=== PATIENT | male | born 1935 | race Caucasian/White ===

== ENCOUNTER → 2020-07-02 15:39 | Outpatient (CLI) | payer MEDICARE, SELFPAY ==
--- NOTE | ~2020-07-02 | XR_ITS ---
XR finger 2nd LT min 2V DATE: 07/02/2020 16:03 INDICATION: Injury TECHNIQUE: 4 views COMPARISON: 08/06/2018 left hand FINDINGS: There is soft tissue swelling of the second digit, most prominent in proximal and midportio n of the digits. There is severe osteoarthritic change at the second metacarpophalangeal joints and the proximal and d istal interphalangeal joints erosive change at the proximal interphalangeal joint. There is osteoarthritis at the first carpometacarpal and first metacarpophalangeal joint and the inte rphalangeal joints of the second digit. No fracture or dislocation or periosteal reaction. IMPRESSION: Polyarticular osteoarthritis Differential diagnosis at the proximal interphalangeal joint of the second digit includes erosive ost eoarthritis versus infection Reviewed, dictated and finalized at location A. IMPRESSION: Polyarticular osteoarthritis Differential diagnosis at the proximal interphalangeal joint of the second digi t includes erosive osteoarthritis versus infection
== END ==
PROVIDERS: Visit Provider Nurse Practitioner Family
DX: M19.042 Primary osteoarthritis, left hand (principal)
CPT/HCPCS: 73140

== ENCOUNTER 2020-12-29 18:14 | Emergency (ER) | payer MEDICARE, SELFPAY ==
[2020-12-29 18:30] VITALS: BP 127/75; PULSE 75; RESP 15; TEMP 36.2; O2SAT 100
--- NOTE | 2020-12-29 18:36 | ED.WOUNDLAC ---
HPI - Wound/Laceration General Chief Complaint: Wound/Laceration Stated Complaint: Cut Lt Forearm Source: patient and RN notes reviewed Limitations: no limitations History of Present Illness HPI narrative: The right-handed patient-- on [employer] for AODM, for Afib on Eliquis and has tetanus allergy--, presents with skin avulsion. Patient states about 4 hours ago he scraped his left forearm while moving a piece of furniture. He complains of mild pain and bleeding from proximal-based flap avulsion, thats better with compression or elevation. No numbness, foreign body, weakness; he declines tetanus update. Related Data Home Medications Medication Instructions Recorded Confirmed apixaban 2.5 mg tablet 2.5 mg PO BID 01/24/19 07/05/20 aspirin 81 mg tablet,delayed 81 mg PO DAILY 01/24/19 07/05/20 release ezetimibe 10 mg tablet 10 mg PO DAILY 01/24/19 07/05/20 glucosamine HCl 500 mg tablet 500 mg PO DAILY tablet 01/24/19 07/05/20 lisinopril 5 mg tablet 5 mg PO DAILY 01/24/19 07/05/20 metoprolol succinate 25 mg 25 mg PO DAILY 01/24/19 07/05/20 tablet,extended release 24 hr omeprazole 20 mg capsule,delayed 20 mg PO DAILY 01/24/19 07/05/20 release torsemide 20 mg tablet 10 mg PO DAILY tablet 01/24/19 07/05/20 tamsulosin 0.4 mg PO DAILY 12/30/20 12/30/20 Allergies Allergy/AdvReac Type Severity Reaction Status Date / Time diphtheria,pertussis Allergy Severe Seizure Verified 12/30/20 11:01 (acellular),te Tetanus Vaccines and Toxoid Allergy Severe seizures Verified 12/30/20 11:01 quinine Allergy Mild Nausea and Verified 12/30/20 11:01 Vomiting Review of Systems Review of Systems: General/Constitutional: No weight loss,fever Eyes: N0: Redness,discharge Ears/Nose/Throat: No: Epistaxis,ear discharge Respiratory: Denies: Hemoptysis Gastrointestinal: No Vomiting, Bleeding-rectal Skin: No Lumps, eruption Neurologic: No Focal Weakness,Sz Hematologic: Denies: Petechiae/Purpura Psychiatric: No: Suicida ideationl All Other Systems: Reviewed and Negative [facility] Past Medical History Medical History Decreased libido Strength loss of Uncontrolled type 2 diabetes mellitus with complication, without long-term current use of insulin Family History Family History Sibling Patient's brother is in good health Family history of malignant neoplasm Social History Social History Alcohol intake: never Gender identity (if verbalized by the patient): Male Comments At time of signature, agree with nursing past medical, surgical, social and family history. There is no relevant family history pertinent to the presenting complaint Exam Narrative: General Appearance: Well appearing, No distress EYE: PERRLA, Conjunctiva clear Ears: External ear normal Nose: Normal nose Mouth/Throat: Normal appearing, Normal lips,: Supple Respiratory: Airway patent, No respiratory distress Abdomen: Soft, Non-tender, No massess, Musculoskeletal: Full ROM Skin-forearm: Warm, Dry; smaller 4x4 cm triangular, proximal based flap avulsion Neurological: A&O x3, CN II-X intact Psychiatric: Normal mood, Normal affect Course Vital Signs Vital signs: Vital Signs Temperature 97.2 F L 12/29/20 18:30 Pulse Rate 75 12/29/20 18:30 Respiratory Rate 15 12/29/20 18:30 Blood Pressure 127/75 12/29/20 18:30 Pulse Oximetry 100 12/29/20 18:30 Temperature 97.2 F L 12/29/20 18:30 Pulse Rate 75 12/29/20 18:30 Respiratory Rate 15 12/29/20 18:30 Blood Pressure 127/75 12/29/20 18:30 Pulse Oximetry 100 12/29/20 18:30 Discharge Plan Discharge Clinical Impression: Encounter for post-traumatic wound check Avulsion of skin of forearm Qualifiers: Encounter type: initial encounter Laterality: left Qualified Code(s): S51.802A - Unspecified open wound of l
== END 2020-12-29 19:07 | disposition home or self-care (01) ==
PROVIDERS: Emergency Provider Emergency Medicine; PCP Family Medicine
DX: S51.802A Unspecified open wound of left forearm, initial encounter (principal); W45.8XXA Other foreign body or object entering through skin, initial encounter; Z79.4 Long term (current) use of insulin; Z79.82 Long term (current) use of aspirin
CPT/HCPCS: 99213; G0463

== ENCOUNTER → 2021-12-19 11:52 | Outpatient (CLI) | payer MEDICARE, SELFPAY ==
--- NOTE | ~2021-12-19 | XR_ITS ---
XR chest 2V 12/19/2021 12:12 Indication: Cough Procedure: 2 view chest Comparison: 02/18/2016 Findings: Status post median sternotomy for CABG. Cardiomegaly. No focal air space disease, pulmonary edema, pleural effusion or suspected pneumothorax. Pacemaker leads are stable. Impression: 1: No acute cardiopulmonary disease. Reviewed, dictated and finalized at location B. Impression: 1: No acute cardiopulmonary disease.
== END ==
PROVIDERS: PCP Internal Medicine Cardiovascular Disease; Visit Provider Internal Medicine Cardiovascular Disease
DX: R05.9 Cough, unspecified (principal)
CPT/HCPCS: 71046

== ENCOUNTER 2022-05-29 08:57 | Outpatient (CLI) | payer MEDICARE, SELFPAY ==
--- NOTE | 2022-05-29 11:30 | NEURO_ITS ---
Impression: # Known diabetic complains of tingling in lower extremities. # Neuropathy left more than right, sensory more than motor of axonal type. # Needle/EMG exam reveals neurogenic changes. Motor Nerve Conduction Lower Extremities Peroneal Nerve Conduction Velocity (m/sec) Terminal Latency (msec) Response Voltage(mV) Popliteal space-Ankle Ankle Extensor Dig Brevis Popliteal space Ankle Right 37 4.5 .5 .6 Left NR NR NR NR Tibial Nerve Conduction Velocity (m/sec) Terminal Latency (msec) Response Voltage(mV) Popliteal space-Ankle Ankle-Extensor Dig Brevis Popliteal space Ankle Right 35 5.9 .2 .1 Left NR NR NR NR F-waves Peroneal Nerve (ms) Tibial Nerve (ms) Right NR NR Left NR NR Sensory Nerve Conduction Lower Extremities Sural Nerve Stimulation Terminal Latency (msec) Ankle Response Voltage (uV) Ankle Response Velocity (m/sec) Right NR NR NR Left NR NR NR Superficial Peroneal Nerve Stimulation Terminal Latency (msec) Ankle Response Voltage (uV) Ankle Response Velocity (m/sec) Right NR NR NR Left NR NR NR Left Right Muscles Examined Fibrillation Fasciculation Scarcity Voltage Duration Left Right Left Right Left Right Left Right Left Right X X Ant Tibialis Reduced Reduced >12ms >12ms X X Gastroc Reduced Reduced >12ms >12ms X X Fibularis Long Reduced Reduced >12ms >12ms X X Flex Dig Long X X Ext Dig Brev Reduced Reduced >12ms >12ms Abd Hallucis X X Quadriceps Reduced Reduced >12ms >12ms Paraspinals MTDD
== END 2022-05-29 08:58 | disposition home or self-care (01) ==
LOC: ANHNEURO 08:58
PROVIDERS: PCP Family Medicine; Visit Provider Family Medicine
DX: G62.9 Polyneuropathy, unspecified (principal)
CPT/HCPCS: 95886; 95910

== ENCOUNTER 2022-11-12 17:07 | Observation (INO) | payer MEDICARE, SELFPAY ==
[2022-11-12] VITALS (9 sets, daily range): BP systolic 147–171; BP diastolic 74–93; PULSE 59–86; RESP 14–20; TEMP 35.9–36.7; O2SAT 98–100; BMI 27.6
--- NOTE | ~2022-11-12 | CT_ITS ---
EXAMINATION: CTA BRAIN/CAROTID DATE: 11/12/2022 18:00 INDICATION: Stroke with right upper extremity weakness, blurred vision and left-sided headache TECHNIQUE: Computed tomographic angiography (CTA) of the head and neck was performed with 100 mL Omni paque-350 intravenous contrast. Multiplanar reconstructions and maximum intensity projection 3D-recon structions of the carotid arteries and of the intracranial arteries were created by the technologist on a separate workstation. Precontrast CT of the head was also obtained. Automated exposure control and iterative reconstruction technique were employed.The dose-length product was 1184.99 mGy-cm. COMPARISON: Head CT dated 11/12/2022 FINDINGS: Carotid arteries: Visualized portion of the thoracic aorta is normal in caliber with no dissection. Postoperative mcekon e of prior median sternotomy and coronary artery bypass grafting. Enlargement of the central pulmonar y arteries consistent with pulmonary arterial hypertension. Atherosclerotic calcifications without he modynamically significant stenosis at the great vessels arising from the aortic arch. There is 40% st enosis of the right carotid bulb relative to normal distal artery lumen diameter (NASCET criteria). T here is 35% stenosis of the left carotid bulb relative to normal distal artery lumen diameter. Left v ertebral artery is mildly dominant. There is small amount of atherosclerotic plaque without mildly si gnificant stenosis at the origin of the bilateral vertebral arteries. Mild dependent atelectasis in t he visualized upper lungs likely related to expiratory phase of imaging. Mildly prominent right parat lizeth lymph node measuring up to 1.7 x 0.9 cm which is likely reactive. Moderate cervical spondylos is. Intracranial arteries Atherosclerotic calcific a cyst without hemodynamically significant stenosis at the bilateral carotid siphons. There is no hemodynamically significant stenosis in the vertebral, basilar and internal car otid arteries. Vertebral arteries are codominant. There are no aneurysms identified. Both A1 and P1 segments are patent. Cerebral arterial arborization appears symmetric. No abnormally enhancing brain lesions identified. IMPRESSION: 1. 40% stenosis of the right carotid bulb relative to normal distal artery lumen diameter (NASCET cri teria). 2. 35% stenosis of the left carotid bulb relative to normal distal artery lumen diameter. 3. Nonhemodynamically significant atherosclerotic plaque at the bilateral carotid siphons. Otherwise unremarkable cerebral CT angiogram. Reviewed, dictated and finalized at location A. IMPRESSION: 1. 40% stenosis of the right carotid bulb relative to normal distal artery lume n diameter (NASCET criteria). 2. 35% stenosis of the left carotid bulb relative to normal distal artery lumen diameter. 3. Nonhemodynamically significant atherosclerotic plaque at the bilateral carot id siphons. Otherwise unremarkable cerebral CT angiogram.
--- NOTE | ~2022-11-12 | XR_ITS ---
EXAMINATION: XR chest 1V portable DATE: 11/12/2022 17:46 INDICATION: Stroke with right upper extremity weakness TECHNIQUE: frontal view of the chest was obtained. COMPARISON: Chest radiograph dated 12/19/2021 FINDINGS: The lungs remain clear with no focal airspace opacities, pulmonary edema, pleural effusion or pneumot horax. Cardiomegaly. Median sternotomy wires, ostial markers and mediastinal surgical clips consisten t with prior coronary artery bypass grafting. Dual lead pacemaker seen with leads projecting over the expected locations of the right atrium and right ventricle. IMPRESSION: 1. No acute cardiopulmonary disease. Reviewed, dictated and finalized at location A.
--- NOTE | ~2022-11-12 | CT_ITS ---
EXAMINATION: CT brain wo con DATE: 11/12/2022 17:24 INDICATION: Right upper extremity weakness, headache and dizziness. TECHNIQUE: Computed tomography (CT) of the head was performed without intravenous contrast. Sagittal and coronal reconstructions were performed. The mA was adjusted according to patient size. Iterative reconstruction technique was employed. The dose-length product was 605.33 mGy-cm. COMPARISON: head CT dated 08/07/05 FINDINGS: Unchanged small focus of encephalomalacia in the right frontal lobe consistent with chronic infarct. No acute intracranial hemorrhage, acute infarction or abnormal extra axial fluid collection. There is mild scattered white matter hypoattenuation consistent with chronic small vessel ischemic disease. S ymmetric prominence of the sulci consistent with mild to moderate age-appropriate diffuse cerebral vo lume loss. Ventricles are normal and symmetric. No mass/mass effect. Mild mucosal thickening the bila teral ethmoid sinuses. The orbits and mastoid air cells are normal. IMPRESSION: 1. 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 No acute intracranial process. 2. Age-related changes including mild to moderate diffuse volume loss and mild scattered white matter hypoattenuation consistent with chronic small vessel ischemic disease. Reviewed, dictated and finalized at location A. IMPRESSION: 1. 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 No acute intracranial process. 2. Age-related changes including mild to moderate diffuse volume loss and mild scattered white matter hypoattenuation consistent with chronic small vessel isc hemic disease.
[2022-11-12 17:29] LABS: Glucose Point of Care 119 mg/dl (65-105)
[2022-11-12 17:37] LABS: Basophils Percent Auto 0.4 % (0.2-1.2); Eosinophils Absolute Auto 0.3 K/mm3 (0-0.3); Eosinophils Percent Auto 3.2 % (0-4.4); Hematocrit 44.4 % (42.0-52.0); Hemoglobin 14.7 g/dL (14.0-18.0); Immature Granulocyte Absolute 0.04 K/mm3 (0.00-0.031); Immature Granulocyte Percent A 0.4 % (0-0.5); Lymphocytes Absolute Auto 1.83 K/mm3 (0.9-3.2); Lymphocytes Percent Auto 19.6 % (18.3-44.2); Mean Corpuscular HGB Conc 33.1 g/dl (32-36); Mean Corpuscular Hemoglobin 31.6 pg (26-34); Mean Corpuscular Volume 95.5 fl (80-100); Mean Platelet Volume 8.8 fl (7.4-10.4); Monocytes Absolute Auto 0.8 K/mm3 (0.1-0.6); Neutrophils Absolute Auto 6.4 K/mm3 (1.3-6.7); Neutrophils Percent Auto 68.4 % (45.5-73.1); Platelet Count Result 216 k/mm3 (150-375); Red Blood Count 4.65 M/mm3 (4.6-6.20); Red Cell Distribution Width 13.4 % (11.5-14.5); White Blood Count 9.3 K/mm3 (4.5-10.0)
[2022-11-12 17:46] LABS: Alanine Aminotransferase 19 U/L (6-50); Albumin Level 4.2 g/dL (3.5-5.1); Alkaline Phosphatase 64 U/L (38-126); Anion Gap 7 mmol/L (8-16); Aspartate Amino Transferase 20 U/L (17-59); Bilirubin,Total 0.7 mg/dL (0.2-1.3); Blood Urea Nitrogen 19 mg/dL (9-20); Calcium 8.7 mg/dL (8.4-10.2); Carbon Dioxide 28 mmol/L (22-30); Chloride 102 mmol/L (98-107); Estimated CRCL calculation 35 ml/min; Estimated Glomerular Filt Rate 44; Glucose 114 mg/dL (65-110); Sodium 137 mmol/L (137-145)
[2022-11-12 17:48] LABS: INR 1.1; Prothrombin Time 14.2 Seconds (11.1-14.7)
--- NOTE | 2022-11-12 17:48 | ECG_ITS ---
Measurements Intervals [place] Rate: 68 P: CT: 0 QRS: -58 QRSD: 170 T: 125 QT: 479 QTc: 510 Interpretive Statements ELECTRONIC VENTRICULAR PACEMAKER PREMATUER VENTRICULAR CONTRACTIONS ABNORMAL RHYTHM ECG NO PREVIOUS ECG AVAILABLE FOR COMPARISON Electronically Signed On 11-13-2022 10:57:36 CDT by Martin Hidalgo M.D.
--- NOTE | 2022-11-12 17:56 | ED.NEUROSD ---
HPI - Neuro Symptoms/Deficit General Chief Complaint: Neuro Symptoms/Deficit Stated Complaint: I think I had a mini stroke Time Seen by Provider: 11/12/22 17:17 History of Present Illness HPI Narrative: Patient is an 87-year-old male who presents ER with strokelike symptoms. At 2 PM while taking a shower he began having weakness in the right arm where he could not move it. He had mild weakness in the right leg, and he had slurred speech. Symptoms resolved upon presentation to the ER. Reports he has history of A-fib and is currently on a blood thinner (apixaban). No chest pain or chest pressure. No racing of the heart. Patient reports he has had a mild left-sided headache for the last week with throbbing behind the right eye. No change in vision or hearing. Denies any trauma. Related Data Home Medications Medication Instructions Recorded Confirmed apixaban 2.5 mg tablet (Eliquis) 2.5 mg PO BID 01/24/19 11/12/22 ezetimibe 10 mg tablet 10 mg PO DAILY 01/24/19 11/12/22 glucosamine HCl 500 mg tablet 500 mg PO BID 01/24/19 11/12/22 metoprolol succinate 25 mg 25 mg PO DAILY 01/24/19 11/12/22 tablet,extended release 24 hr omeprazole 20 mg capsule,delayed 20 mg PO DAILY 01/24/19 11/12/22 release torsemide 20 mg tablet 10 mg PO DAILY 01/24/19 11/12/22 potassium chloride 10 mEq 10 meq PO DAILY 09/29/22 11/12/22 capsule,extended release Allergies Allergy/AdvReac Type Severity Reaction Status Date / Time diphtheria,pertussis Allergy Severe Seizure Verified 11/12/22 17:34 (acellular),te Tetanus Vaccines and Toxoid Allergy Severe seizures Verified 11/12/22 17:34 quinine Allergy Mild Nausea and Verified 11/12/22 17:34 Vomiting Review of Systems Review of Systems: All systems reviewed & are unremarkable except as noted in HPI and below Constitutional: Constitutional: Denies chills, Denies fatigue and Denies fever(s) Eyes: Eyes: Denies change in vision and Denies photophobia ENT: Denies nasal congestion and Denies sore throat Cardiovascular: Cardiovascular: Denies chest pain, Denies rapid heart rate and Denies radiating jaw, neck or arm pain Respiratory: Respiratory: Denies cough, Denies dyspnea and Denies wheezing Gastrointestinal: Gastrointestinal: Denies abdominal pain, Denies nausea and Denies vomiting Neurologic: Denies syncope, Reports headache(s), Reports focal weakness and Denies numbness PMFSH Past Medical History Medical History (Updated 11/12/22 @ 18:44 by Diego Sauceda MD) BMI 27.0-27.9,adult Bowel obstruction Coronary artery disease Decreased libido Diabetes type 2, controlled Essential hypertension Insomnia Neuropathy Paroxysmal atrial fibrillation Strength loss of Uncontrolled type 2 diabetes mellitus with complication, without long-term current use of insulin Surgical History Surgical History (Updated 11/12/22 @ 17:58 by Diego Sauceda MD) No pertinent past surgical history Family History Family History Sibling Patient's brother is in good health Family history of malignant neoplasm Father No problems noted. Mother , 97 No problems noted. Sibling No problems noted. 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 HEAD: Normocephalic, atraumatic. EYES: PERRL and EOMI. ENT: Mucous membranes moist. CHEST: Clear to auscultation. No respiratory distress. HEART: R irregular regular rate and rhyt
[2022-11-12 17:58] LABS: Troponin I < 0.012 ng/mL (0.000-0.034)
--- NOTE | 2022-11-12 20:19 | PC.NURSE ---
Pt reported to this RN that his gave him his at home night time medications.
--- NOTE | 2022-11-12 20:48 | ADMGEN ---
This patient, Olegario Chambers, was admitted to 2 Medical Room 255-. Patient/family oriented to hospital policies and general routines including ID bracelet, bed and alarms, visiting hours, pain management, procedures, bathroom and other care routines, personal items, smoking policy, room service/diet, and visiting hours. Information on how to activate the Rapid Response Team has been discussed. Patient/Family are encouraged to report perceived risks to care and to ask questions if they do not understand what they are told or what they should do.
[2022-11-13] VITALS (7 sets, daily range): BP systolic 113–133; BP diastolic 45–65; PULSE 59–70; RESP 16–21; TEMP 36.1–36.4; O2SAT 100
--- NOTE | 2022-11-13 | ECHO_ITS ---
Patient Info Name: Olegario Chambers Age: 87 years : 1935 Gender: Male Ht: 72 in Wt: 203 lbs BSA: 2.18 m2 HR: 60 bpm BP: 113 / 45 mmHg Heart Rhythm: Paced Technical Quality: Fair Exam Date: 11/13/2022 3:44 PM Exam Location: [facility] Pulmonary Patient Status: Inpatient Admit Date: 11/12/2022 Staff Ordering Physician: Rubén Lehman Plant Control Operator: Romelia Lund RDCS Attending Provider: Raffy Reed MD Referring Physician: Dominik STEWART; Exam Type: CA echo dop bubble study w con Study Info Indications - r/o tia Complete two-dimentional, color flow and Doppler transthoracic echocardiogram is performed with agitated saline and with contrast to opacify the left ventricle and to improve the delineation of the left ventricle endocardial borders. Contrast/Agitated Saline Contrast/Ag. Saline: Agitated Saline Amount: 20.00 ml Administered By: Romelia Lund RDCS Existing IV Access: Yes IV Access Condition: patent with no signs of infiltration Contrast/Ag. Saline: Definity Amount: 3.00 ml Administered By: Romelia Lund RDCS Existing IV Access: Yes IV Access Condition: patent with no signs of infiltration Summary 1. Left ventricular hypertrophy with good systolic contractility. 2. Definity contrast injected to improve visualization. 3. Mildly sclerotic aortic valve with mild aortic regurgitation. 4. Significantly dilated left atrium. 5. Modest MR. 6. Pacemaker lead noted. 7. Cardiac rhythm appears to be ventricularly paced with some intrinsic rhythm, atrial rhythm probably AFib. 8. Saline contrast injection shows no evidence of intracardiac shunt. Left Ventricle Left ventricular chamber dimension is normal. Left ventricular systolic function is normal, estimated at 60-65%. There is mild concentric increased left ventricular wall thickness. Right Ventricle Right ventricular chamber dimension is normal. Linear artifact in right ventricle suggestive of catheter(s), pacemaker lead(s), or ICD lead(s). Left Atria Left atrial chamber dimension is severely enlarged. Right Atria Right atrial chamber dimension is normal. Atrial Septum Intact interatrial septum visualized by agitated saline imaging. Aortic Valve The aortic valve is trileaflet. There is mild aortic valve sclerosis. There is trace aortic valve regurgitation. Pulmonic Valve The pulmonic valve is not well visualized. Mitral Valve The mitral valve has normal leaflets. There is mild mitral valve regurgitation. Tricuspid Valve The tricuspid valve leaflets are normal. Pericardium/Pleural The pericardium appears normal. Aorta The aortic root size at the sinus of Valsalva is normal. Left Ventricular Outflow Tract Name Value Normal LVOT 2D LVOT Diameter 2.0 cm LVOT Doppler LVOT Peak Gradient 2 mmHg LVOT Mean Gradient 1 mmHg LVOT VTI 13 cm LVOT VTI/AV VTI Ratio 0.6 LVOT Stroke Volume 41 ml LVOT CO 2.5 l/min
--- NOTE | 2022-11-13 01:21 | PM.IMHP ---
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 He is also diabetic with diabetic complains of tingling in his lower extremities. The patient has neuropathy to lower extremities. The patient came to the emergency room tonight with stroke-like symptoms. The patient stated that while he was taking a shower he began having weakness to his right arm which could not move. His some mild weakness to his right leg. He also stated that he had slurred speech. The patient came to the emergency room but now his symptoms have resolved. He does have a history of AFib and is on apixaban. Patient denies any chest pain or palpitation. He has no fever chills. No nausea vomiting or diarrhea. The patient reports that he has a mild left-sided headache for the last week and a throbbing headache behind his right eye. Creatinine is 1.5 which is at his baseline. GFR 44 and is currently at the baseline is well. Blood sugars 114 and 119. Troponin negative. Head and neck CTA1. 40% stenosis of the right carotid bulb relative to normal distal artery lumen diameter (NASCET criteria). 2. 35% stenosis of the left carotid bulb relative to normal distal artery lumen diameter. 3. Nonhemodynamically significant atherosclerotic plaque at the bilateral carotid siphons. Otherwise unremarkable cerebral CT angiogram. Chest x-ray shows no acute cardiopulmonary disease. Head CT read as followingmall old infarct in the right frontal lobe. No acute intracranial process. 2. Age-related changes including mild to moderate diffuse volume loss and mild scattered white matter hypoattenuation consistent with chronic small vessel ischemic disease. Neurology has been consulted. The patient was given Zofran, [place], Tylenol, and morphine,. The patient is being admitted to observation status on the date of service of 11/12/2022 Review of Systems Review of Systems: All systems reviewed & are unremarkable except as noted in HPI and below Constitutional: Constitutional: Reports as per HPI and Reports no additional constitutional complaints Eyes: Eyes: Reports as per HPI and Reports no additional eye complaints ENT: Reports system reviewed and no additional complaints, except as documented and Reports Normal hearing present Cardiovascular: Cardiovascular: Reports no additional cardiovascular complaints Respiratory: Respiratory: Reports no additional respiratory complaints and Reports no additional respiratory complaints Gastrointestinal: Gastrointestinal: Reports as per HPI and Reports no additional gastrointestinal complaints Musculoskeletal: Musculoskeletal: Reports no additional musculoskeletal complaints Integumentary/Breasts: Skin/Breast: Reports system reviewed and no additional complaints, except as docu and Reports as per HPI Neurologic: Reports system reviewed and no additional complaints, except as documented, Reports as per HPI and Reports Normal hearing present Psychiatric: Psychiatric: Reports no additional psychiatric complaints and Reports as per HPI Endocrine: Endocrine: Reports no additional endocrine complaints Hematologic/Lymphatic: Hematologic/Lymphatic: Reports no additional hematologic/lymphatic complaints Allergic/Immunologic: Allergic/Immunologic: Reports no additional allergic/immunologic complaints [facility] Past Medical History Medical History (Updated 11/13/22 @ 01:42 by Zuleyka Harris NP) BMI 27.0-27.9,adult Bowel obstruction BPH (benign prostatic hyperplasia) Coronary artery disease Decreased libido Diabetes type 2, controlled Essential hypertension Insomnia Neuropathy Pacemaker Paroxysmal atrial fibrillation Strength loss of Two-vessel coronary artery disease Uncontrolled type 2 diabetes mellitus with complication, without long-term current use of insuli
--- NOTE | 2022-11-13 09:45 | PM.DS ---
DS: Admitting Diagnosis Discharge Date 11/13/2245 Admitting Diagnosis TIA DS: Discharge Diagnosis Discharge Diagnosis (1) Brain TIA: Code(s): G45.9 - Transient cerebral ischemic attack, unspecified Status: Acute Assessment and Plan: The patient is already on apixaban. The patient has had an echo in the passing we are awaiting records on his echo. CT the brain as follows Head CT 11/12/22 17:25 IMPRESSION: 1. 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 No acute intracranial process. 2. Age-related changes including mild to moderate diffuse volume loss and mild scattered white matter hypoattenuation consistent with chronic small vessel ischemic disease. Head/Neck CTA 11/12/22 18:02 IMPRESSION: 1. 40% stenosis of the right carotid bulb relative to normal distal artery lumen diameter (NASCET criteria). 2. 35% stenosis of the left carotid bulb relative to normal distal artery lumen diameter. 3. Nonhemodynamically significant atherosclerotic plaque at the bilateral carotid siphons. Otherwise unremarkable cerebral CT angiogram. Neurology has been consulted. MRI unable to be obtained related to pacemaker Echo will be ordered to rule out clots per neuro, will get bubble Lipid panel and A1c ordered Symptoms resolved Add aspirin (2) Neuropathy: Code(s): G62.9 - Polyneuropathy, unspecified Status: Acute Assessment and Plan: Chronic Continue supportive therapy (3) Paroxysmal atrial fibrillation: Code(s): I48.0 - Paroxysmal atrial fibrillation Status: Acute Assessment and Plan: Continue with apixaban and metoprolol EKG shows paced rhythm HR stable and controlled (4) Essential hypertension: Code(s): I10 - Essential (primary) hypertension Status: Acute Assessment and Plan: BP 113/45 Continue with metoprolol and torsemide Trend BP adjust therapy as indicated (5) BPH (benign prostatic hyperplasia): Code(s): N40.0 - Benign prostatic hyperplasia without lower urinary tract symptoms Status: Acute Assessment and Plan: Continue with Flomax. Trend urine output DS: Summary Hospital Course Hospital Course: patient is a 7-year-old male with a past medical history of AFib with pacemaker, diabetes type 2, hypertension, CAD, post CABG presented the ED with complaints of right-sided numbness and tingling of the upper extremity. CT of the brain was performed and showed an old infarct to the right frontal lobe CTA was performed showed 40% stenosis the right carotid bulb, 35% of the left carotid bulb. Lipid panel was performed and did show LDL of 97. Patient was started on atorvastatin. Cardiology was consulted and started patient on an 81 mg aspirin. Echo was performed with bubble study showed___. MRI was ordered however cannot be performed due to pacemaker. Currently patient states that his symptoms have resolved. A1c was 6.1. Patient is denying any chest pain, shortness a breath, nausea, vomiting, diarrhea constipation. Neurology has been consulted and saw the patient as well. Currently patient is stable for discharge for labs and vital signs patient will follow-up with primary care and about a week. Status at Discharge Functional status at discharge: independent ambulation Overall status at discharge: patient is progressing back to baseline Time Spent with Patient Time attestation: Total time spent providing and/or coordinating discharge services: 43 minutes Time spent: Greater than 30 minutes Specific discharge activities: Diagnostic testing, chart review, developing a treatment plan, education, care coordination documentation, physical exam, result review Exam Narrative: General: well-nourished, well-appearing 87-year-old male, sitting up in bed, comfortable, NARD Neuro: awake, alert and oriented x4, speech clear, no focal neuro deficits noted HEENMT: normocephalic, atrau
--- NOTE | 2022-11-13 10:41 | PM.CNCAR ---
Assessment and Plan Assessment and plan (1) Brain TIA: Code(s): G45.9 - Transient cerebral ischemic attack, unspecified Status: Acute Assessment and Plan: Neurology has been consulted. Last echocardiogram from April 2022 shows normal LV size and function with LVEF 65%, severe LVH, mild-moderate MR, moderate TR. Given this TIA episode, I recommend patient take ASA 81mg once daily in addition to his Eliquis. (2) Atrial fibrillation: Code(s): I48.91 - Unspecified atrial fibrillation Status: Acute Assessment and Plan: His last device interrogation in October 2022 shows atrial fibrillation burden of >99% but no ventricular high rate episodes. Continue Eliquis 2.5mg BID (2.5mg dose based on age and renal function). Continue Metoprolol. Plan Patient really wants to go home today. From a cardiac standpoint, he is okay to go home. Follow up with me in clinic. Recommendations/plan discussed with Hospitalist. History of Present Illness History of Present Illness Consult date/time: 11/13/22 10:41 Requesting physician: Diego Sauceda MD Consult reason: Other (TIA, need Echo records) Reason For Visit: tia Narrative: Reason for consult: TIA, need Echo records. This is an 87 year old pleasant gentleman who I see in the clinic. He has coronary artery disease s/p CABG, atrial fibrillation, sick sinus syndrome s/p dual chamber PPM who presented with right arm weakness that occurred yesterday afternoon while showering. He could not move his right arm. Had some mild right leg weakness and slurred speech. Symptoms lasted for about an hour and then resolved with no residual deficits. CT head shows old infarct, but no acute findings. Patient admitted for TIA workup. Patient states he is feeling well this morning and wants to go home. His last device interrogation in October 2022 shows atrial fibrillation burden of >99% but no ventricular high rate episodes. Last echocardiogram from April 2022 shows normal LV size and function with LVEF 65%, severe LVH, mild-moderate MR, moderate TR. Patient reports full compliance with his Apixaban. Review of Systems Review of Systems: All systems reviewed & are unremarkable except as noted in HPI and below (HPI) [facility] Past Medical History Medical History BMI 27.0-27.9,adult Bowel obstruction BPH (benign prostatic hyperplasia) Coronary artery disease Decreased libido Diabetes type 2, controlled Essential hypertension Insomnia Neuropathy Pacemaker Paroxysmal atrial fibrillation Strength loss of Two-vessel coronary artery disease Uncontrolled type 2 diabetes mellitus with complication, without long-term current use of insulin Surgical History Surgical History H/O hernia repair History of cardiac catheterization Hx of cholecystectomy S/P total knee arthroplasty Bilaterally Family History Family History Sibling Patient's brother is in good health Family history of malignant neoplasm Father No problems noted. Mother , 97 No problems noted. Sibling No problems noted. Social History Social History Social History: The patient lives with his and has 3 children. He is retired. He is a former smoker. 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
--- NOTE | 2022-11-13 12:13 | WPDNEURCNPN ---
Assessment and Plan Assessment and plan (1) Atrial fibrillation: Code(s): I48.91 - Unspecified atrial fibrillation Status: Acute (2) Brain TIA: Code(s): G45.9 - Transient cerebral ischemic attack, unspecified Status: Acute (3) Coronary artery disease: Qualifiers: Coronary Disease-Associated Artery/Lesion type: [place] artery [place] vs. transplanted heart: [place] heart Associated angina: without angina Qualified Code(s): I25.10 - Atherosclerotic heart disease of [place] coronary artery without angina pectoris Code(s): I25.10 - Atherosclerotic heart disease of [place] coronary artery without angina pectoris Status: Acute (4) Diabetes type 2, controlled: Qualifiers: Diabetes mellitus terminal operations supervisor insulin use: without terminal operations supervisor use Diabetes mellitus complication status: without complication Qualified Code(s): E11.9 - Type 2 diabetes mellitus without complications Code(s): E11.9 - Type 2 diabetes mellitus without complications Status: Acute (5) Essential hypertension: Code(s): I10 - Essential (primary) hypertension Status: Acute Plan Mr. Chambers is an 87 year old male with a history of HTN, DM, HLD, atrial fibrillation s/p pacemaker presenting due to transient RUE weakness. Symptoms self-resolved. Neurological exam appears to be non-focal. MRI cannot be done at this facility due to the pacemaker. Suspect likely TIA. - Continue Eliquis BID - LDL goal <70; will need adjunct lipid lowering therapy - A1c, 6.1 -prediabetic range - Surface echocardiogram is pending - MRI brain should be done as outpatient at pacemaker compatible MRI - Outpatient Neurology follow-up Consult date: 11/13/22 Reason for consult: Concern for stroke HPI: Olegario Chambers is a 87 year old male with a history of diabetes, HTN, atrial fibrillation s/p pacemaker, CAD presenting for evaluation of new neurological symptoms. Patient was taking a shower when he noted that his RUE went completely limp. He also had some mild weakness in the RLE and slurred speech. He presented to the ED where his symptoms had resolved. He takes Elquis BID for his atrial fibrillation. He denies any missed doses of medication around the day of presesntation, but did miss a dose or two about a week ago. CT head was negative fo acute change but did show old infarct in the right frontal lobe. CTA brain/carotid showed 40% setnosis of the R carotid bulb and 35% stenosis of the L carotid bulb. Blood pressure was initially elevated to 170s systolic, but has been lower in the 130s and 110s recently. LDL from this admission is 93. He takes ezetimibe 10mg. He has a pacemaker so he cannot get an MRI here. He does not smoke. Review of Systems Constitutional: Constitutional: Denies chills, Denies fever(s) and Denies weight loss Eyes: Eyes: Denies diplopia and Denies loss of vision ENT: Denies dizziness, Denies hearing loss and Denies tinnitus Cardiovascular: Cardiovascular: Denies chest pain, Denies syncope and Denies dyspnea Respiratory: Respiratory: Denies cough, Denies dyspnea and Denies wheezing Gastrointestinal: Gastrointestinal: Denies abdominal pain, Denies change in bowel habits and Denies vomiting Genitourinary: Genitourinary: Denies urinary incontinence Musculoskeletal: Musculoskeletal: Denies arthralgias and Denies joint swelling Integumentary/Breasts: Skin/Breast: Denies new lesions and Denies rash Neurologic: Reports as per HPI, Denies dizziness, Denies syncope and Denies loss of vision Psychiatric: Psychiatric: Denies anxiety and Denies depression Endocrine: Endocrine: Denies cold intolerance and Denies heat intolerance Hematologic/Lymphatic: Hematologic/Lymphatic: Denies easy bleeding and Denies easy bruising Allergic/Immunologic: Allergic/Immunologic: Denies no additional allergic/immunologic complaints and Denies wheezing PMFSH Past Medical History Medical History (Reviewed 11/13/22 @
[2022-11-13 13:15] LABS: Cholesterol 168 mg/dL (0-200); HDL Direct 50 mg/dL; Triglycerides 79 mg/dL (<150)
[2022-11-13 13:18] LABS: Hemoglobin A1C 6.1 % (<5.7)
[2022-11-13 13:26] LABS: LDL Cholesterol Direct 93 mg/dL
[2022-11-13] MEDS: PERFLUTREN LIPID MICROSPHERES 1.5 ML VIAL DILUTED TO 10 ML TOTAL VOLUME IV PUSH (16:16)
--- NOTE | 2022-11-13 16:53 | PC.NURSE ---
Nurse was reviewing discharge medications with patient, patient states he cannot take statins d/t muscle cramping. Provider was notified and nurse and provider discussed the importance of diet control and lowering cholesterol levels in the patients room. Provider stated to not take the prescribed statin and this medication was added to his allergy list.
--- NOTE | 2022-11-13 17:53 | IVDEFINITY ---
Prior to administration of IV Definity the patient was educated on the risks and benefits of the imaging enhancing agent including potential adverse side effects. The patient verbalized understanding. Allergies were verified. No exclusion criteria were identified and at least one of the following inclusion criteria were met: 1) physician request, 2) patient technically difficult to image (per the [place] [employer] guidelines of two or more segments not discernable within the apical view), or 3) questionable left ventricular function. ?
== END 2022-11-13 16:45 | disposition home or self-care (01) ==
LOC: ANHED 18:44 → ANH2MED 20:51
PROVIDERS: Nurse Practitioner; Admitting Provider Chiropractor; Emergency Provider Emergency Medicine; PCP Family Medicine; Visit Provider Student in an Organized Health Care Education/Training Program
DX: G45.9 Transient cerebral ischemic attack, unspecified (principal); I48.0 Paroxysmal atrial fibrillation; I25.10 Atherosclerotic heart disease of native coronary artery without angina pectoris; Z95.1 Presence of aortocoronary bypass graft; I10 Essential (primary) hypertension; E11.42 Type 2 diabetes mellitus with diabetic polyneuropathy; I08.0 Rheumatic disorders of both mitral and aortic valves; N40.0 Benign prostatic hyperplasia without lower urinary tract symptoms; R94.31 Abnormal electrocardiogram [ECG] [EKG]; Z79.01 Long term (current) use of anticoagulants; Z87.891 Personal history of nicotine dependence; Z86.73 Personal history of transient ischemic attack (TIA), and cerebral infarction without residual deficits; Z79.899 Other long term (current) drug therapy
CPT/HCPCS: 36415; 70450; 70496; 70498; 71045; 80053; 80061; 82948; 83036; 84484; 85025; 85610; 85730; 93005; 96374; 96375; 99285; C8929; G0378; Q9957; Q9967

== ENCOUNTER 2023-03-24 12:28 | Outpatient (CLI) | payer MEDICARE, SELFPAY ==
--- NOTE | ~2023-03-24 | US_ITS ---
EXAMINATION: US venous doppler [facility] DATE: 03/24/2023 12:52 INDICATION: Left lower limb swelling TECHNIQUE: Grayscale ultrasound images without and with compression and Doppler ultrasound images of the left lower extremity veins were obtained. COMPARISON: None. FINDINGS: The visualized portions of left common femoral vein, profunda (deep) femoral vein, femoral vein, popl iteal vein, peroneal veins, posterior tibial veins, gastrocnemius vein and greater saphenous vein out flow are patent. IMPRESSION: 1. No deep venous thrombosis in the left lower limb. Reviewed, dictated and finalized at location A. MAN
== END 2023-03-24 12:29 | disposition home or self-care (01) ==
LOC: ANHIMG 12:32
PROVIDERS: PCP Family Medicine; Visit Provider Internal Medicine
DX: M79.89 Other specified soft tissue disorders (principal)
CPT/HCPCS: 93971

== ENCOUNTER 2023-08-18 10:03 | Emergency (ER) | payer MEDICARE, SELFPAY ==
--- NOTE | ~2023-08-18 | XR_ITS ---
EXAMINATION: XR knee RT 3V DATE: 08/18/2023 10:58 INDICATION: Right knee injury. Fall. TECHNIQUE: 3 views of right knee were obtained. COMPARISON: Right knee radiographs 10/04/2013 FINDINGS: There is varus simulation of the knee. No fracture. There is severe osteoarthritis of media l compartment and moderate osteoarthritis of lateral and patellofemoral compartments. There is chondr ocalcinosis of the menisci. There are dystrophic calcifications of the joint capsule. There is a smal l knee joint effusion with loose bodies. There are surgical clips posterior to the knee. IMPRESSION: 1. Severe right knee osteoarthritis. 2. Small right knee joint effusion with loose bodies. Reviewed, dictated and finalized at location A.
--- NOTE | ~2023-08-18 | XR_ITS ---
EXAMINATION: XR ankle RT min 3V DATE: 08/18/2023 10:58 INDICATION: Right ankle pain. Fall. TECHNIQUE: 4 views of right ankle were obtained. COMPARISON: None. FINDINGS: Bone alignment is normal. There is heterotopic ossification distal to lateral malleolus. No acute fracture. There is mild osteoarthritis of talonavicular joint. There is an enthesophyte at roxie ntar aspect of calcaneal tuberosity. Ankle soft tissue swelling is noted. IMPRESSION: 1. No acute fracture. Reviewed, dictated and finalized at location A. IMPRESSION: 1. No acute fracture.
[2023-08-18 10:05] VITALS: BP 140/78; PULSE 66; RESP 18; TEMP 36.7; O2SAT 99
--- NOTE | 2023-08-18 10:41 | ED.GENADULT ---
HPI - General Adult General Chief complaint: Extremity Injury, Lower Stated complaint: lower extremity pain Time Seen by Provider: 08/18/23 10:17 Source: patient Mode of arrival: ambulatory Limitations: no limitations History of Present Illness HPI narrative: This is a 88-year-old male with PMH of T2 dm, peripheral neuropathy, CAD, HTN who presents to the ED with chief complaint of a fall that occurred 4 days ago and subsequent right ankle and right knee pain. Patient reports that he rolled his ankle walking on his driveway. He states he went down his right side. He has had subsequent to right knee and ankle pain ever since. States that he did not come to the ED with a weekend because he has had experiences hospitals over the weekends. Denies any new onset numbness or weakness. Denies any further sites of pain or injury. Related Data Home Medications Medication Instructions Recorded Confirmed apixaban 2.5 mg tablet (Eliquis) 2.5 mg PO BID 01/24/19 11/25/22 ezetimibe 10 mg tablet 10 mg PO DAILY 01/24/19 11/25/22 glucosamine HCl 500 mg tablet 500 mg PO BID 01/24/19 11/25/22 metoprolol succinate 25 mg 100 mg PO DAILY 01/24/19 11/25/22 tablet,extended release 24 hr omeprazole 20 mg capsule,delayed 20 mg PO DAILY 01/24/19 11/25/22 release torsemide 20 mg tablet 10 mg PO DAILY 01/24/19 11/25/22 Allergies Allergy/AdvReac Type Severity Reaction Status Date / Time diphtheria,pertussis Allergy Severe Seizure Verified 11/25/22 16:05 (acellular),te Tetanus Vaccines and Toxoid Allergy Severe seizures Verified 11/25/22 16:05 quinine Allergy Mild Nausea and Verified 11/25/22 16:05 Vomiting [id number] Reductase AdvReac Intermediate Muscle Pain Verified 11/25/22 16:05 Inhibitor Review of Systems Review of Systems: All systems as dictated in HPI [facility] Past Medical History Medical History BMI 27.0-27.9,adult Bowel obstruction BPH (benign prostatic hyperplasia) Coronary artery disease Decreased libido Diabetes type 2, controlled Essential hypertension Insomnia Neuropathy Pacemaker Paroxysmal atrial fibrillation Strength loss of Two-vessel coronary artery disease Uncontrolled type 2 diabetes mellitus with complication, without long-term current use of insulin Surgical History Surgical History H/O hernia repair History of cardiac catheterization Hx of cholecystectomy S/P total knee arthroplasty Bilaterally Family History Family History Sibling Patient's brother is in good health Family history of malignant neoplasm Father Mother , 97 Sibling No problems noted. Social History Social History Social History: The patient lives with his and has 3 children. He is retired. He is a former smoker. 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 HEAD: Normocephalic, atraumatic. EYES: PERRLA and EOMI. ENT: Nares clear, no rhinorrhea or epistaxis. Mucous membranes moist. Oropharynx without tonsillar h
[2023-08-18 11:57] VITALS: BP 163/78; PULSE 63; RESP 18; TEMP 36.7; O2SAT 100
== END 2023-08-18 11:59 | disposition home or self-care (01) ==
PROVIDERS: Emergency Provider Physician Assistant; PCP Family Medicine
DX: S93.401A Sprain of unspecified ligament of right ankle, initial encounter (principal); M25.461 Effusion, right knee; I25.10 Atherosclerotic heart disease of native coronary artery without angina pectoris; I10 Essential (primary) hypertension; E11.42 Type 2 diabetes mellitus with diabetic polyneuropathy; Z79.01 Long term (current) use of anticoagulants; Z79.899 Other long term (current) drug therapy; Z87.891 Personal history of nicotine dependence; W18.39XA Other fall on same level, initial encounter; X50.9XXA Other and unspecified overexertion or strenuous movements or postures, initial encounter
CPT/HCPCS: 73562; 73610; 99284

== ENCOUNTER 2024-05-15 13:56 | Emergency (ER) | payer MEDICARE, SELFPAY ==
--- NOTE | ~2024-05-15 | XR_ITS ---
CHEST RADIOGRAPH, PA AND LATERAL CLINICAL HISTORY: cough one week . COMPARISON: 11/12/2022 TECHNIQUE: PA and lateral views of the chest. FINDINGS Sternal wires and mediastinal clips are identified, the wires are midline and intact. The left mid lung is partially obscured due to pacemaker generator. Wires project over the right atrium and right ventricle. The remainder of the cardiomediastinal silhouette is otherwise unremarkable. The lungs are clear. IMPRESSION: No focal infiltrate or effusion. Reviewed, dictated and finalized at location A. CIATE PROFESSOR OF PHYSICS
--- OUTSIDE RECORDS SUMMARY | 2024-05-15 13:59 | XMS_ITS | Clinical Summary ---
Author Organization [facility] Address formerly [facility] [place] [address] Care Team Providers Care Tax Commissioner Name Role Phone Unavailable Primary Care Provider Unavailabl e Social History Tobacco Use Types Packs/Day Years Used Date Smoking Tobacco: Never Assessed Sex and Gender Information Value Date Recorded Sex Assigned at Not on file Legal Sex Male 6:59 AM CDT Gender Identity Not on file Sexual Orientation Not on file Plan of Treatment Health Maintenance Due Date Last Done Comments DTaP, Tdap and Td Vaccines (1 - Tdap) 06/16/1954 Zoster Vaccines (1 of 2) 1986 Annual Medicare Wellness Visit 2001 Pneumococcal Vaccine: 65+ Years (1 of 1 - PCV) 2001 04/22/2013 RSV Immunization or 60+ Years (1 - 1-dose 75+ series) 06/16/2011 COVID-19 Vaccine ( season) 2023 06/20/2020, 05/22/2020 Influenza Adult (#1) 2023 12/21/2019, 02/09/2019, 02/08/2019, Additional history exists Meningococcal B Vaccine Aged Out No l onger eligible based on patient's age to complete this topic Meningococcal Vaccine Aged Out No tex sunil eligible based on patient's age to complete this topic RSV Immunizations Under 20 Months Aged Out No longer eligible based on patient's age to complete this topic Insurance MEDICARE GENERIC - COMMERCIAL
--- OUTSIDE RECORDS SUMMARY | 2024-05-15 13:59 | XMS_ITS | Clinical Summary ---
Author Organization [facility] Address [address], [place] [address] Phone Care Team Providers Care Graphics Coordinator Name Role Phone Bismark Sanz MD Primary Care Provider [phone] Allergies Active Allergy Reactions Criticality Noted Date Comments Quinine Other (see comments) 09/20/2018 Reaction: Other, Tetanus Toxoids 09/15/2018 Medications Medication Sig Dispensed Refills Start Date End Date Status omeprazole (PriLOSEC) [address] capsule Take 20 mg by mouth 1 (one) time each day. Active aspirin 81 MG chewable tablet Chew 81 mg 1 (one) time each day. Active apixaban (ELIQUIS) 2.5 MG tablet Take 2.5 mg by mouth 2 (two) times a day. Active ezetimibe (ZETIA) 10 MG tablet Take 10 mg by mouth 1 (one) time each day. Active tamsulosin (FLOMAX) 0.4 MG 24 hr capsule Take 0.4 mg by mouth 1 (one) time each day. Active torsemide (DEMADEX) 20 MG tablet Take 10 mg by mouth 1 (one) time each day. Active GLUCOSAMINE-CHONDROI T-BIOFL-MN PO one tab daily Active potassium chloride (MICRO-K) 10 MEQ CR capsule TK 1 C PO D 01/03/2019 Active metoprolol succinate XL (TOPROL-XL) 100 MG 24 hr tablet TK 1 T PO D 12/23/2019 Active zaleplon (SONATA) 10 MG capsule TAKE 1 CAPSULE BY MOUTH EVERY NIGHT AT BEDTIME NEEDED FOR SLEEP. 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 Hypercholesterolemia 09/28/2008 Coronary atherosclerosis 09/19/2008 Hypertension 09/19/2008 Immunizations Name Administration Dates Next Due Influenza TIV (IM) 05/08/2021(Deferred: Patient decision),12/21/2019,02/08/2019 Pneumococcal Conjugate 04/22/2013 Family History Medical History Relation Comments Kidney disease Neg Hx Social History Tobacco Use Types Packs/Day Years Used Date Smoking Tobacco: Never Smokeless Tobacco: Never Alcohol Use Standard Drinks/Week Comments No 0 (1 standard drink = 0.6 oz pur e alcohol) AUDIT-C Answer Date Recorded Frequency of Alcohol Consumption Never 09/15/2018 Average Number of Drinks Not on file 019 Frequency of Binge Drinking Not on file 08/22 Sex and Gender Information Value Date Recorded Sex Assigned at Not on file Gender Identity Not on file Sexual Orientation Not on file Last Filed Vital Signs Vital Sign Reading Time Taken Comments Blood Pressure 114/70 05/08/2021 9:18 AM 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 Pulse 72 05/08/2021 9:18 AM ELECTRIFIER OPERATOR Temperature 35.6 C (96 F) 05/08/2021 9:18 AM ELECTRIFIER OPERATOR Respiratory Rate - - Oxygen Saturation - - Inhaled Oxygen Concentration - - Weight 95.3 kg (210 lb) 05/08/2021 9:18 AM ELECTRIFIER OPERATOR Height 182.9 cm (6') 05/08/2021 9:18 AM ELECTRIFIER OPERATOR Body Mass Index 28.48 05/08/2021 9:18 AM ELECTRIFIER OPERATOR Plan of Treatment Health Maintenance Due Date Last Done Comments Pneumococcal PPSV23/PCV13 65 + Years / Low and Medium Risk (1 of 4 - PCV) 2001 Influenza Vaccine (#1) 2023 12/21/2019, 2018 Care Teams Graphics Coordinator Relationship Specialty Start Date End Date Bismark Sanz MD [address] [place] [address] PCP - General Family Medicine 09/06/18
--- OUTSIDE RECORDS SUMMARY | 2024-05-15 13:59 | XMS_ITS | Clinical Summary ---
Author Organization [facility] Address [address] [place] [id number] Care Team Providers Care Prosthodontist Name Role Phone Bismark Sanz MD Primary Care Provider [phone] Allergies Active Allergy Reactions Criticality Noted Date Comments Quinine Other (See comments),Nausea And Vomiting Low 09/20/2018 Reaction: Other, Reaction: Other, Reaction: Other, Reaction: Other, Tetanus Toxoid Unknown 09/15/2018 Medications torsemide (DEMADEX) 20 mg tablet Take 0.5 tablets (10 mg total) by mouth daily 8 Active omeprazole (PriLOSEC) 20 mg capsule Take 1 capsule (20 mg total) by mouth daily 7 Active tamsulosin (FLOMAX) 0.4 mg extended release capsule Take 1 capsule (0.4 mg total) by mouth nightly 8 Active glucosamine/cho ndro auguste A/C/Mn (GLUCOSAMINE-CH ONDROITIN COMPLX ORAL) Take 2 tablets by mouth daily Active potassium chloride ER 10 mEq CR capsule Take 1 tablet/capsule (10 mEq total) by mouth daily 2 Active UNKNOWN TO PATIENT Testosterone pill Active Eliquis 2.5 mg tablet TAKE 1 TABLET BY MOUTH TWICE DAILY 180 tablet 2 4 Active ezetimibe (ZETIA) 10 mg tablet TAKE 1 TABLET(10 MG) BY MOUTH DAILY 90 tablet 4 Active metoprolol XL (TOPROL-XL) 50 mg extended release tablet Take 2 tablets (100 mg total) by mouth daily 180 tablet 1 4 Active Active Problems Problem Noted Date Diagnosed Date Visit for wound check 09/18/2023 Encounter for pacemaker at end of battery life 0 09/07/2023 Pacemaker at end of battery life 08/25/2023 Swelling of left lower extremity 03/06/2023 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 Dx; SSS, Afib. DOI 09/07/2023-Rika. Chronic leads 11/2007. Jesenia. [place] remote. Leads are from 2007, they have not been tested for MRI, therefore are Not approved for MRI. 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 Dysphonia 07/02/2010 Hypercholesterolemia 09/28/2008 Methicillin resistant Staphylococcus aureus infe ction 09/19/2008 Coronary artery disease invo lving [place] coronary artery of [place] heart without angina pectoris 09/19/2008 Longstanding persistent atrial fibrillation (CMS /HCC) 09/19/2008 Hypertension 09/19/2008 Encounters Date Type Department Care Team Description 04/08/2024 10:30 AM SCRIPT WORKER Office Visit [facility] [address] [place] [address] Leyla Wong NP Longstanding persistent atrial fibrillation (CMS/HCC) (HCC) (Primary Dx); Chronic anticoagulation; SSS (sick sinus syndrome) (CMS/HCC) ([facility]); Pacemaker; Coronary artery disease involving [place] coronary artery of newtok heart without angina pectoris; Hx of CABG; Localized swelling of left lower leg 04/08/2024 10:00 AM SCRIPT WORKER Ancillary Procedure [facility] [address] [place] [address] Pacemaker; Paroxysmal atrial fibrillation (CMS/HCC) (HCC); SSS (sick sinus syndrome) (CMS/HCC) (HCC) 03/14/2024 Telephone [facility] [address] [place] [address] Martin Hidalgo MD from Last 3 Months Surgical History Surgery Date Site/Laterality Comments [place] CORONARY ARTERY BYPASS 1 CORONARY VENOUS GRAFT CABG - (Added by TW Conv) Medical History Medical History Date Comments HL (hearing loss) Tinnitus Dizziness Exposure to noise Sleep apnea Motion sickness Atrial fibrillation (CMS/HCC) (HCC) Hypertension Neuropathy (CMS/HCC) CAD (coronary artery disease) Family History Medical History Relation Name Comments Heart attack Brother Family history of myocardial infarction - (Added by TW Conv) Heart attack Father Family history of myocardial infarction - (Added by TW Conv) Relation Name Status Comments Brother Father Social History Tobacco Use Types Packs/Day Years Used Date Smoking Tobacco: Former Cigarettes Smokeless Tobacco: Never Tobacco Cessation:Counseling Given: Not Answered AUDIT-C Answer Date Recorded Frequency of Alcohol Consumption Not on file 09/07/2023 Q2: How many drinks containi ng alcohol do you have on a typical day when you are drinking? Patient does not drink Frequency of Binge Drinking Not on file 08/21 Personal Safety Answer Date Recorded Have you ever been in or are you currently in a harmful physical or emotional relationship or is someone making you feel afraid or unsafe? Denies 09/07/2023 Sex and Gender Information Value Date Recorded Sex Assigned at Not on file Legal Sex Male 9:14 PM SCRIPT WORKER Gender Identity Not on file Sexual Orientation Not on file Obstetrics History Last Filed Vital Signs Vital Sign Reading Time Taken Comments Blood Pressure 110/50 04/08/2024 10:32 AM SCRIPT WORKER Pulse 59 04/08/2024 10:32 AM SCRIPT WORKER Temperature 36.1 C (97 F) 09/07/2023 3:25 PM CDT Respiratory Rate 17 09/07/2023 4:10 PM CDT Oxygen Saturation 97% 04/08/2024 10:32 AM SCRIPT WORKER Inhaled Oxygen Concentration - - Weight 98 kg (216 lb) 04/08/2024 10:32 AM SCRIPT WORKER Height 182.9 cm (6') 04/08/2024 10:32 AM SCRIPT WORKER Body Mass Index 29.29 04/08/2024 10:32 AM SCRIPT WORKER Plan of Treatment Health Maintenance Due Date Last Done Comments Depression Screening 1936 DTaP/Tdap/Td Vaccine (1 - Tdap) 06/16/1947 Hepatitis B Screening 1954 Zoster Vaccine (1 of 2) 1986 Well Visit 65+ 2001 Pneumococcal vaccine 65+ (2 of 2 - PPSV23) 04/22/2014 04/22/2013 Covid-19 Vaccine (3 - 2023-2 5 season) 2023 06/20/2020, 05/22/2020 Influenza Vaccine (#1) 2023 0, 02/09/2019, 02/08/2019, Additional history exists Fall Risk Assessment 09/06/2024 09/07/2023 Medical Devices Implanted Type Area Electric Engine Mechanic Device Identifier Shelf Expiration Date Model / Serial / Lot [employer] Assurity Mri [id number] Chamber Is-1 Connector Thk6mm Pacemaker [id number] - [id number] - [id number] Implanted:Qty: 1 on 09/07/2023 by Arian Meléndez MD at [facility] Pacemaker [employer] 12/20/2024 [id number] / [id number] / Procedures Procedure Name Priority Date/Time Associated Diagnosis Comments DEVICE CHECK - IN OFFICE Routine 04/08/2024 9:47 AM SCRIPT WORKER Pacemaker Paroxysmal atrial fibrillation (CMS/HCC) (HCC) SSS (sick sinus syndrome) (CMS/HCC) (HCC) from Last 3 Months Results * DEVICE CHECK - IN OFFICE (04/08/2024 9:47 AM SCRIPT WORKER) Anatomical Region Laterality Modality Other Narrative 04/14/2024 2:11 PM SCRIPT WORKER Renmatix Dual Pacemaker. Dx; SSS, Afib. DOI 09/07/2023-Rika. Chronic leads 11/2007. Jesenia. Nic goldsmith. Leads are from 2007, they have not been tested for MRI, therefore are Not approved for MRI. Office DDD Pacemaker device interrogation performed by [employer] 28 entry level marketing representative. Transmission attached. Stable lead impedances, pacing and sensing thresholds. Charge time and Shock impedance. Battery voltage- 2.99V , 8.0 years remaining to BILL. AP- <1%, AQUATIC FACILITY MANAGER-83 %. Presenting rhythm- Afib AQUATIC FACILITY MANAGER. 1 AT/AF episodes noted. AF [place] 100%. No Ventricular arrhythmias detected. Medication: Eliquis, Toprol-XL. No Programming changes made to device settings. See scanned report. [place] remote f/u 07/12/2024. Office device f/u expected in 13-15 months. [facility] Jose M Hidalgo MD CV CARDIAC SERVICES PRO CEDURES Final Result from Last [address] [facility] MEDICARE MEDICARE COMMERCIAL GENERIC MEDICARE COMMERCIAL GENERIC Care Teams Prosthodontist Relationship Specialty Start Date End Date Bismark Sanz MD PCP - General 07/19/16
--- OUTSIDE RECORDS SUMMARY | 2024-05-15 13:59 | XMS_ITS | Referral Summary ---
Author Organization [facility] Address [address] [place] [id number] Care Team Providers Care Appraisal Coordinator Name Role Phone Bismark Sanz MD Primary Care Provider Encounters Date Type Department Care Team Description 04/08/2024 10:00 AM MIDWIFE AND BIRTH CENTER OWNER Ancillary Procedure [facility] [address] [place] [address] Pacemaker; Paroxysmal atrial fibrillation (CMS/HCC) (HCC); SSS (sick sinus syndrome) (CMS/HCC) (HCC) 04/08/2024 10:30 AM MIDWIFE AND BIRTH CENTER OWNER Office Visit [facility] [address] [place] [address] Leyla Wong NP Longstanding persistent atrial fibrillation (CMS/HCC) (HCC) (Primary Dx); Chronic anticoagulation; SSS (sick sinus syndrome) (CMS/HCC) (HCC); Pacemaker; Coronary artery disease involving [place] coronary artery of steb[place] heart without angina pectoris; Hx of CABG; Localized swelling of left lower leg 03/14/2024 Telephone [facility] [address] [place] [address] Martin Hidalgo MD from Last 3 Months Allergies Active Allergy Reactions Criticality Noted Date [...] DOI 09/07/2023-Rika. Chronic leads 11/2007. Jesenia. Nic remote. Leads are from 2007, they have [...] ction 09/19/2008 Coronary artery disease invo lving stebbins coronary artery of stebbins heart without angina pectoris 09/19/2008 Longstanding persistent atrial fibrillation (CMS /HCC) 09/19/2008 Hypertension 09/19/2008 Social History Tobacco Use Types Packs/Day Years [...] on file Legal Sex Male 9:14 PM MIDWIFE AND BIRTH CENTER OWNER Gender Identity Not on file Sexual Orientation Not on file Last Filed Vital Signs Vital Sign Reading Time Taken Comments Blood Pressure 110/50 04/08/2024 10:32 AM MIDWIFE AND BIRTH CENTER OWNER Pulse 59 04/08/2024 10:32 AM MIDWIFE AND BIRTH CENTER OWNER Temperature 36.1 C (97 F) 09/07/2023 3:25 PM CDT Respiratory Rate 17 09/07/2023 4:10 PM CDT Oxygen Saturation 97% 04/08/2024 10:32 AM MIDWIFE AND BIRTH CENTER OWNER Inhaled Oxygen Concentration - - Weight 98 kg (216 lb) 04/08/2024 10:32 AM MIDWIFE AND BIRTH CENTER OWNER Height 182.9 cm (6') 04/08/2024 10:32 AM MIDWIFE AND BIRTH CENTER OWNER Body Mass Index 29.29 04/08/2024 10:32 AM MIDWIFE AND BIRTH CENTER OWNER Plan of Treatment Not on file Medical Devices Implanted Type Area Blister Rust Eradicator Device Identifier Shelf Expiration Date Model / Serial / Lot [employer] Assurity Mri [id number] Chamber Is-1 Connector Thk6mm Pacemaker [id number] - [id number] - [id number] Implanted:Qty: 1 on 09/07/2023 by Arian Meléndez MD at [facility] Pacemaker [employer] 12/20/2024 [id number] / [id number] / Procedures Procedure Name Priority Date/Time Associated Diagnosis Comments DEVICE CHECK - IN OFFICE Routine 04/08/2024 9:47 AM MIDWIFE AND BIRTH CENTER OWNER Pacemaker Paroxysmal atrial fibrillation (CMS/HCC) (HCC) SSS (sick sinus syndrome) (CMS/HCC) (HCC) from Last 3 Months Results * DEVICE CHECK - IN OFFICE (04/08/2024 9:47 AM MIDWIFE AND BIRTH CENTER OWNER) Anatomical Region Laterality Modality Other Narrative 04/14/2024 2:11 PM MIDWIFE AND BIRTH CENTER OWNER At[employer] Assurity Dual Pacemaker. Dx; SSS, Afib. DOI 09/07/2023-Rika. Chronic leads 11/2007. Jesenia. Nic remote. Leads are from 2007, they have not been tested for MRI, therefore are Not approved for MRI. Office DDD Pacemaker device interrogation performed by [employer] bilingual inside sales representative. Transmission attached. Stable lead impedances, pacing and sensing thresholds. Charge time and Shock impedance. Battery voltage- 2.99V , 8.0 years remaining to BILL. AP- <1%, CRYSTAL GROWER-83 %. Presenting rhythm- Afib CRYSTAL GROWER. 1 AT/AF episodes noted. AF [place] 100%. No Ventricular arrhythmias detected. Medication: Eliquis, Toprol-XL. No Programming changes made to device settings. See scanned report. Myra remote f/u 07/12/2024. Office device f/u expected in 13-15 months. [facility] Jose M Hidalgo MD CV CARDIAC SERVICES PRO CEDURES Final Result from Last 3 Months Insurance [employer] GENERIC Member Subscriber Plan / Payer (Ef fective 2006-Present) Name:Olegario Chambers Relation to Subscriber:Self Name:Olegario Chambers Payer ID:[id number] Group ID:Not on file Type:COMMERCIAL Address: [address] [id number] MEDICARE MEDICARE COMMERCIAL GENERIC MEDICARE COMMERCIAL GENERIC Care Teams Appraisal Coordinator Relationship Specialty Start Date End Date Bismark Sanz MD PCP - General 07/19/16
--- OUTSIDE RECORDS SUMMARY | 2024-05-15 14:00 | XMS_ITS | Referral Summary ---
Author Organization [facility] Address [address] [place] [address] Care Team Providers Care Green Chain Off Bearer Name Role Phone Unavailable Primary Care Provider Unavailabl e Source Comments [facility],non-owned Affiliates and Associated Physician Practices is amultiple site organization consisting of ambulatory clinics and hospital sitesin [place], [place], [place] and [place]. This disclosure is being madepursuant to the Care Everywhere program and may not contain all information available regarding this patient. Last updated 17.[facility] Social History Tobacco Use Types Packs/Day Years Used Date Smoking Tobacco: Never Assessed Sex and Gender Information Value Date Recorded Sex Assigned at Not on file Gender Identity Not on file Sexual Orientation Not on file Plan of Treatment Not on file
--- OUTSIDE RECORDS SUMMARY | 2024-05-15 14:00 | XMS_ITS | Encounter Summary ---
Author Organization [facility] Address [address] [place] [address] Phone Care Team Providers Care Media Services Coordinator Name Role Phone Bismark Sanz MD Primary Care Provider Encounter Details Date Type Department Care Team (Late st Contact Info) Description 12/25/2015 Orders Only [facility] CLINCON[facility] ProviderDejan MD [address] [place] [address] Social History Tobacco Use Types Packs/Day Years Used Date Smoking Tobacco: Never Assessed Sex and Gender Information Value Date Recorded Sex Assigned at Not on file Legal Sex Male 9:14 PM GEOSPATIAL INFORMATION TECHNOLOGIST Gender Identity Not on file Sexual Orientation Not on file documented as of this encounter Plan of Treatment Not on file documented as of this encounter Procedures Procedure Name Priority Date/Time Associated Diagnosis Comments CARDIOLOGY REPORT 12/25/2015 documented in this encounter Results * CARDIOLOGY REPORT (12/25/2015) Anatomical Region Laterality Modality Other Narrative 12/25/2015 Ordered by an unspecified provider. us Historical Provider CV CARDIAC SERVICES MAN SOTELO Final Result documented in this encounter Visit Diagnoses Not on filedocumented in this encounter Care Teams Media Services Coordinator Relationship Specialty Start Date End Date Bismark Sanz MD PCP - General 07/19/16 documented as of this encounter
--- OUTSIDE RECORDS SUMMARY | 2024-05-15 14:00 | XMS_ITS | Encounter Summary ---
Author Organization [facility] Address [address] [place] [address] Phone Care Team Providers Care Plastic Tile Layer Name Role Phone Bismark Sanz MD Primary Care Provider Encounter Details Date Type Department Care Team (Late st Contact Info) Description 08/29/2015 Orders Only [facility]IN[facility] ProviderDejan MD [address] [place] [address] Social History Tobacco Use Types Packs/Day Years Used Date Smoking Tobacco: Never Assessed Sex and Gender Information Value Date Recorded Sex Assigned at Not on file Legal Sex Male 9:14 PM FINANCIAL DATA ANALYST Gender Identity Not on file Sexual Orientation Not on file documented as of this encounter Plan of Treatment Not on file documented as of this encounter Procedures Procedure Name Priority Date/Time Associated Diagnosis Comments CARDIOLOGY REPORT 08/29/2015 documented in this encounter Results * CARDIOLOGY REPORT (08/29/2015) Anatomical Region Laterality Modality Other Narrative 08/29/2015 Ordered by an unspecified provider. Historical Provider CV CARDIAC SERVICES MAN SOTELO Final Result documented in this encounter Visit Diagnoses Not on filedocumented in this encounter Care Teams Plastic Tile Layer Relationship Specialty Start Date End Date Bismark Sanz MD PCP - General 07/19/16 documented as of this encounter
--- OUTSIDE RECORDS SUMMARY | 2024-05-15 14:00 | XMS_ITS | Encounter Summary ---
Author Organization [facility] Address [address] [place] [address] Phone Care Team Providers Care Freight Booker Name Role Phone Bismark Sanz MD Primary Care Provider [phone] Encounter Details Date Type Department Care Team (Late st Contact Info) Description 03/09/2015 Orders Only [facility] ProviderDejan MD [address] [place] [address] Social History Tobacco Use Types Packs/Day Years Used Date Smoking Tobacco: Never Assessed Sex and Gender Information Value Date Recorded Sex Assigned at Not on file Legal Sex Male 9:14 PM KICK PLATE INSTALLER Gender Identity Not on file Sexual Orientation Not on file documented as of this encounter Plan of Treatment Not on file documented as of this encounter Procedures Procedure Name Priority Date/Time Associated Diagnosis Comments CARDIOLOGY REPORT 03/09/2015 documented in this encounter Results * CARDIOLOGY REPORT (03/09/2015) Anatomical Region Laterality Modality Other Narrative 03/09/2015 Ordered by an unspecified provider. us Historical Provider CV CARDIAC SERVICES MAN SOTELO Final Result documented in this encounter Visit Diagnoses Not on filedocumented in this encounter Care Teams Freight Booker Relationship Specialty Start Date End Date Bismark Sanz MD PCP - General 07/19/16 documented as of this encounter
--- OUTSIDE RECORDS SUMMARY | 2024-05-15 14:00 | XMS_ITS | Encounter Summary ---
Author Organization [facility] Address [address] [place] [address] Phone Care Team Providers Care Artificial Foliage Arranger Name Role Phone Bismark Sanz MD Primary Care Provider Encounter Details Date Type Department Care Team (Late st Contact Info) Description 08/07/2017 Orders Only [facility] ProviderDejan MD [address] [place] [address] Social History Tobacco Use Types Packs/Day Years Used Date Smoking Tobacco: Former Sex and Gender Information Value Date Recorded Sex Assigned at Not on file Legal Sex Male 9:14 PM WARP PICKER Gender Identity Not on file Sexual Orientation Not on file documented as of this encounter Plan of Treatment Not on file documented as of this encounter Procedures Procedure Name Priority Date/Time Associated Diagnosis Comments CARDIOLOGY REPORT 08/07/2017 CARDIOLOGY REPORT 08/07/2017 documented in this encounter Results * CARDIOLOGY REPORT (08/07/2017) Anatomical Region Laterality Modality Other Narrative 08/07/2017 Ordered by an unspecified provider. Historical Provider CV CARDIAC SERVICES PROCE DURES Final Result * CARDIOLOGY REPORT (08/07/2017) Anatomical Region Laterality Modality Other Narrative 08/07/2017 Ordered by an unspecified provider. Historical Provider CV CARDIAC SERVICES PROCE DURES Final Result documented in this encounter Visit Diagnoses Not on filedocumented in this encounter Care Teams Artificial Foliage Arranger Relationship Specialty Start Date End Date Bismark Sanz MD PCP - General 07/19/16 documented as of this encounter
--- OUTSIDE RECORDS SUMMARY | 2024-05-15 14:00 | XMS_ITS | Encounter Summary ---
Author Organization [facility] Address [address] [place] [address] Phone Care Team Providers Care National Account Manager Name Role Phone Bismark Sanz MD Primary Care Provider [phone] Encounter Details Date Type Department Care Team (Late st Contact Info) Description 11/14/2013 Orders Only [facility] ProviderDejan MD [address] [place] [address] Social History Tobacco Use Types Packs/Day Years Used Date Smoking Tobacco: Never Assessed Sex and Gender Information Value Date Recorded Sex Assigned at Not on file Legal Sex Male 9:14 PM CRIMINAL ANALYST Gender Identity Not on file Sexual Orientation Not on file documented as of this encounter Plan of Treatment Not on file documented as of this encounter Procedures Procedure Name Priority Date/Time Associated Diagnosis Comments CARDIOLOGY REPORT 11/14/2013 documented in this encounter Results * CARDIOLOGY REPORT (11/14/2013) Anatomical Region Laterality Modality Other Narrative 11/14/2013 Ordered by an unspecified provider. Historical Provider CV CARDIAC SERVICES MAN SOTELO Final Result documented in this encounter Visit Diagnoses Not on filedocumented in this encounter Care Teams National Account Manager Relationship Specialty Start Date End Date Bismark Sanz MD PCP - General 07/19/16 documented as of this encounter
--- OUTSIDE RECORDS SUMMARY | 2024-05-15 14:00 | XMS_ITS | Patient Health Summary ---
Author Organization [facility] [email or web address] Address [address] [place] [address] Care Team Providers Care Wine Cellar Stock Clerk Name Role Phone Unavailable Primary Care Provider Unavailabl e Note from [facility],non-owned Affiliates and Associated Physician Practices is amultiple site organization consisting of ambulatory clinics and hospital sitesin [place], [place], [place] and [place]. This disclosure is being madepursuant to the Care Everywhere program and may not contain all information available regarding this patient. Last updated 17.[facility] [email or web address] Social History Tobacco Use Types Packs/Day Years Used Date Smoking Tobacco: Never Assessed Sex and Gender Information Value Date Recorded Sex Assigned at Not on file Gender Identity Not on file Sexual Orientation Not on file Procedures * CARDIAC CATH(Performed 07/26/2018) * CULTURE BLOOD(Performed 10/04/2013) * CULTURE BLOOD(Performed 10/04/2013) * GROSS + MICRO EXAM(Performed 08/30/2003) * GROSS + MICRO EXAM(Performed 01/13/2000) Results * CARDIAC CATH (07/26/2018) Jose Buckner MD CARDIAC SERVICES ORD ERABLES * CULTURE BLOOD (10/04/2013 2:20 AM CDT) Only the most recent of2 resultswithin the time period is included. Culture Blood No Growth at 5 days [facility] Blood specimen (specimen) BLOOD SPECIMEN / Unknown 10/04/2013 2:20 AM CDT 10/04/2013 9:23 AM CDT Narrative [facility] - 10/09/2013 9:30 AM CDT AndersonSpecimen#[id number] Marty Loc/Rm/Bed: 2 Historical Provider LAB - MICROBIOLOG Y ORDERABLES [facility] [address] [place] [address], [facility] [phone] * GROSS + MICRO EXAM (08/30/2003 2:57 PM CDT) Only the most recent of2 resultswithin the time period is included. Result CASE NUMBER [id number] Comment: ORDERING PHYSICIAN XU ARCHER SPECIMEN TYPE Esophageal Biopsy-distal Date 08/31/2003 Physician Frida Gross Description Received in formalin labeled `distal esophagus biopsy' and consists of a few arnett soft tissue fragments measuring in aggregate .5 x .2 x .1 cm. The specimen is entirely submitted in one cassette. tk/[facility] Microscopic Exam Microscopic examination reveals fragments of esophageal mucosa surfaced in part by squamous mucosa and in part by specialized columnar epithelium with underlying mucinous glands. Some fragments show gastric fundic type glands. Focally there are glands with features of intestinal metaplasia and low grade dysplasia. There is no evidence of high grade dysplasia or malignancy. GM/ Diagnosis I. Distal esophagus, biopsy -- Squamous and specialized columnar epithelium with mild acute and chronic inflammation -- Focal low grade dysplasia GM/ Customer Experience Analyst [facility] Pathologist Gaby Streeter M.D. Sn[place]. 08/31/2003 1330 <1> CPT code -1- 29779 MISCELLANEOUS SAMPLES / Unknown 08/30/2003 2:57 PM CDT 08/30/2003 2:57 PM CDT Historical Provider LAB - PATHOLOGY/C YTOLOGY ORDERABLES
--- OUTSIDE RECORDS SUMMARY | 2024-05-15 14:00 | XMS_ITS | Encounter Summary ---
Author Organization [facility] Address [address] [place] [address] Phone Care Team Providers Care Medical Cash Poster Name Role Phone Bismark Sanz MD Primary Care Provider Encounter Details Date Type Department Care Team (Late st Contact Info) Description 08/08/2017 Orders Only [facility] ProviderDejan MD [address] [place] [id number] Social History Tobacco Use Types Packs/Day Years Used Date Smoking Tobacco: Former Sex and Gender Information Value Date Recorded Sex Assigned at Not on file Legal 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 us Historical Provider CV CARDIAC SERVICES MAN SOTELO Final Result documented in this encounter Visit Diagnoses Not on filedocumented in this encounter Care Teams Medical Cash Poster Relationship Specialty Start Date End Date Bismark Sanz MD PCP - General 07/19/16 documented as of this encounter
--- OUTSIDE RECORDS SUMMARY | 2024-05-15 14:00 | XMS_ITS | Encounter Summary ---
Author Organization [facility] Address [address] [place] [address] Phone Care Team Providers Care Shipyard Painter Apprentice Name Role Phone Bismark Sanz MD Primary Care Provider Encounter Details Date Type Department Care Team (Late st Contact Info) Description 10/06/2016 Orders Only [facility] ProviderDejan MD [address] [place] [id number] Social History Tobacco Use Types Packs/Day Years Used Date Smoking Tobacco: Former Sex and Gender Information Value Date Recorded Sex Assigned at Not on file 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 us Historical Provider CV CARDIAC SERVICES MAN SOTELO Final Result documented in this encounter Visit Diagnoses Not on filedocumented in this encounter Care Teams Shipyard Painter Apprentice Relationship Specialty Start Date End Date Bismark Sanz MD PCP - General 07/19/16 documented as of this encounter
--- OUTSIDE RECORDS SUMMARY | 2024-05-15 14:00 | XMS_ITS | Clinical Summary ---
Author Organization [facility] [employer] Address [address] [place] [address] Care Team Providers Care Executive Steward Name Role Phone Unavailable Primary Care Provider Unavailabl e Source Comments [facility],non-owned Affiliates and Associated Physician Practices is amultiple site organization consisting of ambulatory clinics and hospital sitesin [place], [place], [place] and [place]. This disclosure is being madepursuant to the Care Everywhere program and may not contain all information available regarding this patient. Last updated 17.[facility] [employer] Social History Tobacco Use Types Packs/Day Years Used Date Smoking Tobacco: Never Assessed Sex and Gender Information Value Date Recorded Sex Assigned at Not on file Gender Identity Not on file Sexual Orientation Not on file Plan of Treatment Health Maintenance Due Date Last Done Comments MEDICARE AWV 12 MONTHS 1935 DTAP/TDAP/TD VACCINES (1 - Tdap) 06/16/1955 PNEUMOCOCCAL VACCINE 50+ (1 of 1 - PCV) 1986 ZOSTER VACCINE (1 of 2) 1986 Respiratory Syncytial Virus (RSV) Vaccine Pt: or over 60 yrs (1 - 1-dose 75+ series) 06/16/2011 COVID-19 VACCINE ( - 2023-2 5 season) 2023 INFLUENZA VACCINE (#1) 2023 DEPRESSION SCREENING 03/23/2024 HEPATITIS B VACCINE Aged Out No longe r eligible based on patient's age to complete this topic HIB VACCINE Aged Out No longer eligi ble based on patient's age to complete this topic HPV VACCINE Aged Out No longer eligi ble based on patient's age to complete this topic MENINGOCOCCAL (Group B) VACCINE Aged Out No longer eligible based on patient's age to complete this topic MENINGOCOCCAL VACCINE Aged Out No tex sunil eligible based on patient's age to complete this topic
[2024-05-15 14:10] VITALS: BP 155/91; PULSE 78; RESP 18; TEMP 36.6; O2SAT 99
--- NOTE | 2024-05-15 14:17 | ED.URI ---
HPI - URI/Sore Throat General Chief Complaint: Upper Respiratory Infection Stated Complaint: coughing and chest phlegm Source: patient Mode of arrival: ambulatory Limitations: no limitations History of Present Illness HPI Narrative: 88 y/o male with DM, CAD, afib, HTN presented for c/o cough and chest congestion for over one week. States at onset he had generalized weakness, diarrhea and fever which has all resolved. Says cough is persistent and family says it 'sounds bad.' Denies sob, nausea, vomiting or lethargy. Says has similar symptoms Related Data Home Medications ?Medication ?Instructions ?Recorded ?Confirmed ?Last Taken ?Type apixaban 2.5 mg tablet (Eliquis) 2.5 mg PO BID 01/24/19 12/29/23 11/12/22 History 09 ezetimibe 10 mg tablet 10 mg PO DAILY 01/24/19 12/29/23 Unknown History glucosamine HCl 500 mg tablet 500 mg PO BID 01/24/19 12/29/23 Unknown History metoprolol succinate 25 mg 100 mg PO DAILY 01/24/19 12/29/23 Unknown History tablet,extended release 24 hr Allergies Allergy/AdvReac Type Severity Reaction Status Date / Time diphtheria,pertussis Allergy Severe Seizure Verified 05/15/24 14:15 (acellular),te Tetanus Vaccines and Toxoid Allergy Severe seizures Verified 05/15/24 14:15 quinine AdvReac Intermediate Nausea and Verified 05/15/24 14:15 Vomiting [id number] Reductase AdvReac Intermediate Muscle Pain Verified 05/15/24 14:15 Inhibitor Review of Systems Review of Systems: CONSTITUTIONAL: Denies body aches, fever, chills, or sweats. EYES: Denies visual changes, redness, or discharge. ENT: Denies rhinorrhea, congestion, sore throat, or otalgia. CARDIOVASCULAR: Denies chest pain, palpitations, or edema. RESPIRATORY: Reports cough, wheezing. GASTROINTESTINAL: Denies abdominal pain, nausea, vomiting, or diarrhea. NEUROLOGIC: Denies headache, numbness, tingling, or weakness. PSYCH: Denies depression or anxiety. All systems reviewed & are unremarkable except as noted in HPI and below PMFSH Past Medical History Medical History Vertigo BPH (benign prostatic hyperplasia) Pacemaker Two-vessel coronary artery disease Neuropathy Bowel obstruction BMI 27.0-27.9,adult Insomnia Coronary artery disease Diabetes type 2, controlled Essential hypertension Paroxysmal atrial fibrillation Strength loss of Decreased libido Uncontrolled type 2 diabetes mellitus with complication, without long-term current use of insulin Surgical History Surgical History History of knee surgery bilaterally History of cardiac catheterization H/O hernia repair Hx of cholecystectomy Family History Family History Sibling Patient's brother is in good health Family history of malignant neoplasm Father Mother , 97 Sibling No problems noted. Social History Social History Social History: The patient lives with his and has 3 children. He is retired. He is a former smoker. 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 Please see nursing chart for further information. There is no relevant family history pertinent to the presenting complaint Exam Narrative: GENERAL: Well-appearing, in no acute distress. EYES: EOMI. No redness or drainage. Conjunctivae normal. ENT: Mucous membranes pink and moist. No rhinorrhea.Chronically hoarse voice. CHEST: No respiratory distress. Coarse with scattered wheezing to all thompson. HEART: Regular rate and rhythm. No murmur appreciated. ABDOMEN: Soft, nontender, nondistended, normal active bowel sounds. EXTREMITIES: Normal range of motion. No edema. SKIN: Warm, dry, no rash. Capillary refill normal. Normal skin turgor. NEURO: Alert and oriented x3. Gait steady. PSYCH: Normal affect. Course Course Emergency Course: Patient is aware of diagnosis, understands and agrees to treatment plan. Anticipatory guidance given. Patient agrees to follow-up as directed and is aware of reasons to seek care at the emergency department. Portions of this record may have been created with voice recognition software Level of Care: Express Care Visit Vital Signs Vital signs: Vital Signs Temperature 97.8 F 05/15/24 14:10 Pulse Rate 78 05/15/24 14:10 Respiratory Rate 18 05/15/24 14:10 Blood Pressure 155/91 H 05/15/24 14:10 Pulse Oximetry 99 05/15/24 14:10 Oxygen Delivery Room Air 05/15/24 14:10 Temperature 97.8 F 05/15/24 14:10 Pulse Rate 78 05/15/24 14:10 Respiratory Rate 18 05/15/24 14:10 Blood Pressure 155/91 H 05/15/24 14:10 Pulse Oximetry 99 05/15/24 14:10 Oxygen Delivery Room Air 05/15/24 14:10 MDM - URI/Sore Throat MDM Narrative Medical decision making narrative: Discussed physical exam findings and CXR. Advised supportive measures and signs/symptoms to go to the ER. Pt is appropriate for outpt treatment and f/u. Differential Diagnosis Differential diagnosis: Likely viral infection, bronchitis and other (pneumonia) Imaging Data Radiologist's impression: Patient: Olegario Chambers : 1935 MR#: [id number] Age: 88 Acct:[id number] Loc: [facility] ADM Date: 05/15/24Attending Dr: Ordering Physician: Nolvia Kaplan APRN Date of Service: 05/15/24 Procedure(s): XR chest 2V Accession Number(s): [id number] cc: Nolvia Kaplan APRN; Bismark Sanz MD~ CHEST RADIOGRAPH, PA AND LATERAL CLINICAL HISTORY: cough one week . COMPARISON: 11/12/2022 TECHNIQUE: PA and lateral views of the chest. FINDINGS Sternal wires and mediastinal clips are identified, the wires are midline and intact. The left mid lung is partially obscured due to pacemaker generator. Wires project over the right atrium and right ventricle. The remainder of the cardiomediastinal silhouette is otherwise unremarkable. The lungs are clear. IMPRESSION: No focal infiltrate or effusion. Discharge Plan Discharge Clinical Impression: Bronchitis Patient Disposition: Home, Self-Care Condition: Stable Instructions: Antibiotic Form, Acute Bronchitis (ED) Additional Instructions: Take medication as directed Recommendations: Flonase spray and Zyrtec (or Claritin/Keily) over the counter Cough syrup may cause drowsiness; avoid driving or take it at night time. Tylenol 1000mg every 8 hours as needed for pain Symptomatic treatment includes: rest, fluids, and increase humidity of the air at home. Follow up with your primary care provider as needed in 1 week Go to the ER for worsening symptoms or concerns Patient Language: Maltese Prescriptions: New azithromycin [Zithromax Z-Mauri] 250 mg tablet See Rx Instructions .ROUTE .COMPLEX Qty: 6 0RF Rx Instructions: For 250 mg dose pack: take 500 mg today (day 1), then 250 mg for 4 days (days 2-5) prednisone 50 mg tablet 50 mg PO DAILY Qty: 4 0RF No Action Eliquis 2.5 mg tablet 2.5 mg PO BID ezetimibe 10 mg tablet 10 mg PO DAILY metoprolol succinate 25 mg tablet extended release 24 hr 100 mg PO DAILY glucosamine HCl 500 mg tablet 500 mg PO BID tamsulosin 0.4 mg capsule See Rx Instructions .ROUTE .COMPLEX Qty: 90 1RF Dose Instruction: TAKE 1 CAPSULE BY MOUTH DAILY Rx Instructions: TAKE 1 CAPSULE BY MOUTH DAILY omeprazole 20 mg capsule,delayed release(DR/EC) 20 mg PO DAILY Qty: 90 0RF potassium chloride 10 mEq capsule, extended release 10 meq PO DAILY Qty: 90 0RF Follow-up/Referrals: Bismark Sanz MD [Primary Care Provider] - Time of Disposition: 14:56
== END 2024-05-15 14:57 | disposition home or self-care (01) ==
PROVIDERS: Emergency Provider Nurse Practitioner Family; PCP Family Medicine
DX: J40 Bronchitis, not specified as acute or chronic (principal); Z87.891 Personal history of nicotine dependence; E11.42 Type 2 diabetes mellitus with diabetic polyneuropathy; I25.10 Atherosclerotic heart disease of native coronary artery without angina pectoris; I10 Essential (primary) hypertension; N40.0 Benign prostatic hyperplasia without lower urinary tract symptoms; I48.0 Paroxysmal atrial fibrillation; Z95.0 Presence of cardiac pacemaker; Z79.01 Long term (current) use of anticoagulants
CPT/HCPCS: 71046; 99213; G0463